=== PATIENT | female | born 1965 | race Caucasian/White ===

== ENCOUNTER → 2017-06-14 | Outpatient (CLI) | payer OTHER ==
[~2017-06-14] MED LIST: BENTYL20 MG PO; LOMOTIL TABLET1 EACH PO
== END | disposition home or self-care (01) ==
LOC: RAD 10:21
DX: M19.042 Primary osteoarthritis, left hand (principal); M85.841 Other specified disorders of bone density and structure, right hand; M85.842 Other specified disorders of bone density and structure, left hand; S63.260D Dislocation of metacarpophalangeal joint of right index finger, subsequent encounter; S63.262D Dislocation of metacarpophalangeal joint of right middle finger, subsequent encounter; S63.264D Dislocation of metacarpophalangeal joint of right ring finger, subsequent encounter; S63.266D Dislocation of metacarpophalangeal joint of right little finger, subsequent encounter; S63.21 Subluxation of metacarpophalangeal joint of finger; M25.841 Other specified joint disorders, right hand; M25.842 Other specified joint disorders, left hand
CPT/HCPCS: 73120

== ENCOUNTER 2017-07-06 13:50 | Emergency (ER) | payer SELFPAY ==
[~2017-07-06] VITALS: Ht 157.5 cm; Wt 75.0 kg
[2017-07-06] MEDS ORDERED: MOTRIN600 MG PO (15:47)
[2017-07-06] MEDS ORDERED: NORCO 5/3251 TABLET PO (15:47)
[2017-07-06 16:09] VITALS: BP 150/97
== END 2017-07-06 16:10 | disposition home or self-care (01) ==
LOC: EME 13:50
DX: I83.893 Varicose veins of bilateral lower extremities with other complications (principal); M06.9 Rheumatoid arthritis, unspecified; F17.200 Nicotine dependence, unspecified, uncomplicated
CPT/HCPCS: 99281; 99282